=== PATIENT | female | born 1945 | race Caucasian/White ===

== ENCOUNTER → 2016-10-18 | Outpatient (REF) | payer MEDICARE, MEDICAID ==
[~2016-10-18] MED LIST: /MOXI40TA PO; ALBU0.084 IN; ALBUPOW9 XX; ASPI81TA7 PO; CALTTAB5 PO; CEFT500T PO; HYDR7.5T33 PO; IPRA2IN INH; NICO14PA EXT; PERCOCET PO; PRED10TA2 PO; SIMV20TA2 PO; SING5CHW PO; SOMA350T PO; SPIRIVA INH; SYMB80INH INH; VITAD1000T PO; XANA0.5T PO
[2016-10-18 17:00] LABS: INR 1.01
== END ==
LOC: M LABDRAW1 15:42
PROVIDERS: ATTEND Internal Medicine Pulmonary Disease
DX: R91.8 Other nonspecific abnormal finding of lung field (principal)

== ENCOUNTER → 2016-10-28 | Outpatient (CLI) | payer MEDICAID, MEDICARE ==
[~2016-10-28] MED LIST changes: +ACETAMINOPHEN TAB 650MG DOSE (2X325MG) PO PRN; +IBUPROFEN 200 MG TAB As Ordered ONE; +IBUPROFEN 600 MG TAB PO PRN; +LIDOCAINE 1% MDV 20ML VIAL As Ordered ONE
--- NOTE | 2016-10-28 09:58 | REP ---
CHEST X-RAY: PA VIEW HISTORY: Patient status post CT guided needle biopsy left upper lobe mass. Question pneumothorax. CHEST X-RAY FINDINGS: There is a mass visible in the left upper lobe. No pneumothorax is seen. The lungs are hyperinflated as before. Pleural angles are sharp. The exam is otherwise unremarkable. IMPRESSION: No complication identified. No pneumothorax seen. Evidence of COPD. Signed by Indra Victor MD 10/28/2016 02:38 P
--- NOTE | 2016-10-28 11:35 | REP ---
FOLLOW-UP CHEST X-RAY: PA view. HISTORY: Pain status post CT guided needle biopsy of the lung. FINDINGS: There is no evidence of pneumothorax. Evidence of COPD is seen. The left apical mass persists. IMPRESSION: No complication identified. Signed by Indra Victor MD 10/28/2016 02:40 P
--- NOTE | 2016-11-01 17:04 | REP ---
CT GUIDED LEFT UPPER LOBE LUNG BIOPSY: The procedure was performed under the direct supervision of Dr. Victor. The patient has a history of a 1.5 x 1.0 cm mass in the left upper lobe seen on a previous CAT scan from [facility] performed on 10/03/2016. The risks and benefits of the procedure were explained to the patient and informed consent was obtained. The left upper lobe lung mass was localized using CT guidance. The skin was prepped and draped in a sterile fashion. 1% Lidocaine was used as a local anesthetic. Using CT guidance a #19/20 coaxial needle biopsy system was inserted and advanced into the mass. 4 core biopsy samples were obtained and sent to the lab. Thee patient tolerated the procedure well and there were no immediate complications. After the appropriate amount of monitored convalescence the patient was discharged from the department. Reviewed by SAMANTHA White 11/02/2016 08:25 AEdited and Signed by Indra Victor MD 11/02/2016 09:42 A
== END | disposition home or self-care (01) ==
LOC: M RADPRO 08:25
PROVIDERS: ATTEND Internal Medicine Pulmonary Disease
DX: C34.12 Malignant neoplasm of upper lobe, left bronchus or lung (principal); J43.1 Panlobular emphysema; I10 Essential (primary) hypertension; F41.9 Anxiety disorder, unspecified; E78.00 Pure hypercholesterolemia, unspecified; G89.4 Chronic pain syndrome; M54.9 Dorsalgia, unspecified; J96.11 Chronic respiratory failure with hypoxia; Z87.891 Personal history of nicotine dependence; Z79.82 Long term (current) use of aspirin; Z79.899 Other long term (current) drug therapy; Z79.51 Long term (current) use of inhaled steroids; Z88.1 Allergy status to other antibiotic agents

== ENCOUNTER → 2016-11-16 | Outpatient (CLI) | payer MEDICARE ==
[~2016-11-16] MED LIST changes: -ACETAMINOPHEN TAB 650MG DOSE (2X325MG) PO PRN; -IBUPROFEN 200 MG TAB As Ordered ONE; -IBUPROFEN 600 MG TAB PO PRN; -LIDOCAINE 1% MDV 20ML VIAL As Ordered ONE
--- NOTE | 2016-11-16 15:20 | REP ---
Whole body PET / CT scan: Studies performed for evaluation of left upper lobe nodule additionally identified on chest CT dated 09/13/2016 ([facility]). Whole body PET / CT scan is performed from the skull base to the upper thighs. Neck and supraclavicular areas: There are no hypermetabolic foci. Chest: The left upper lobe nodule demonstrates hypermetabolic uptake with a standard uptake value of 4.7. There is a hypermetabolic focus in the left axilla having a standard uptake value of 4.9, likely in an axillary node. The area measures 6 mm in diameter. Somewhat more distally in the left upper extremity, there is vascular artifact uptake. There is hypermetabolic uptake in an enlarged left hilar node, the standard uptake value measuring 5.1, and the node measuring 1.7 cm short axis. There are no other hypermetabolic foci in the chest. Abdomen, pelvis and upper thighs: There are no hypermetabolic foci. Impression: The patient's known left upper lobe lung nodule demonstrates hypermetabolic uptake. Additionally, there is hypermetabolic uptake in an enlarged left hilar node. There is uptake in the left axilla likely within an axillary node, and also vascular artifact in the left upper extremity. There are no other hypermetabolic foci. The study is performed with 8.7 mCi of F 18 FDG. Signed by Jesus Almaguer MD 11/16/2016 03:12 P
== END ==
LOC: M RAD 11:22
PROVIDERS: ATTEND Internal Medicine Pulmonary Disease
DX: C34.12 Malignant neoplasm of upper lobe, left bronchus or lung (principal)
CPT/HCPCS: 78815; A9552

== ENCOUNTER → 2016-11-22 | Outpatient (REF) | payer MEDICARE | LOC: M LAB REF 09:00 | PROVIDERS: ATTEND Internal Medicine Medical Oncology | DX: C34.92 Malignant neoplasm of unspecified part of left bronchus or lung (principal) ==

== ENCOUNTER → 2016-12-15 | Outpatient (CLI) | payer MEDICARE ==
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
== END ==
LOC: M ONCR 13:12
PROVIDERS: ATTEND Radiology Radiation Oncology
DX: C34.90 Malignant neoplasm of unspecified part of unspecified bronchus or lung (principal)

== ENCOUNTER → 2016-12-22 | Outpatient (CLI) | payer MEDICARE ==
--- NOTE | 2016-12-28 07:46 | RADONC ---
RADIATION ONCOLOGY FOLLOWUP NOTE DATE: 12/22/2016 CHART NUMBER: [id number]. FOLLOWUP NOTE: Ms. 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 Since that time, she has been presented at our multidisciplinary tumor conference. Her FEV-1 is 0.6 or 26% of predicted and her diffusion capacity is only 27% of predicted. In light of the bedolla involved and the amount of normal lung she would lose with treatment,. she was not deemed to be a surgical candidate nor a candidate for external beam radiation. The patient is being followed by her medical oncologist, Dr. Almaraz. I await his expert recommendations. I made clear to the patient and family that just because at this time we cannot safely treat this much lung that does not mean she would not be candidate for radiation in the future. Radiation for palliation would be a possibility for such issues as bone metastasis or brain metastasis. Indeed, normally, we could treat most parts of her body for quality of life issues. At this point, however, I do not think we would be of any benefit to her. Indeed, we may significantly harm her quality of life and the chances of achieving anything of any significance would be minimal. Therefore, discharging her from our followup at this point. Should Dr. Almaraz see any future benefits for radiation, I would be more than glad to readdress the issue with the patient and see her at anytime. Thank you once again for allowing us to participate in the care of this very pleasant and unfortunate woman. cc: MD Damien Biggs DO [facility] *Sina Gregg MD
== END ==
LOC: M ONCR 13:05
PROVIDERS: ATTEND Radiology Radiation Oncology
DX: C34.90 Malignant neoplasm of unspecified part of unspecified bronchus or lung (principal)

== ENCOUNTER → 2017-04-24 | Outpatient (CLI) | payer MEDICARE, MEDICAID ==
[~2017-04-24] MED LIST changes: +ASCO25TA PO; +GUAISYP4 PO; +MULT1TAB18 PO; +TUSS1CAP5 PO; +TUSSSUS6 PO
--- NOTE | 2017-04-24 12:16 | REP ---
CT of the chest without IV contrast: Comparisons are 09/23/2016 ([facility]) and 10/03/2016 ([facility]). The the patient also had a radionuclide CT scan 11/16/2016. And a CT guided needle biopsy on 10/28/2016. The patients known spiculated left upper lobe nodule is again identified today measuring 12 x 8 mm (previously 15 x 10 mm.). Ground-glass density at the inferior tip of the lingula is again identified, unchanged. There is also unchanged from a prior study of 01/29/2014. No other lung masses or nodules are identified. There are no acute infiltrates or effusions. There is bullous replacement of the lung bedolla bilaterally compatible with bullous emphysema. This is unchanged. No mediastinal adenopathy is identified. The study is insensitive for hilar adenopathy in the absence of IV contrast. The thoracic aorta is unremarkable except for occasional calcified atheroma. Cardiac size is normal. There are atheromatous calcifications in the coronary arteries. The upper abdomen there is no adrenal mass. The visualized hepatic parenchyma, gallbladder, pancreas and spleen are unremarkable. The patients known spiculated nodule in the left upper lobe has slightly decreased size. There is extensive bullous replacement of the lung parenchyma bilaterally, unchanged. The ground-glass density at the inferior tip of the lingula is again identified, unchanged. It is also unchanged from a prior study of 01/29/2014. There are no new or acute cardiopulmonary findings. Signed by Jesus Almaguer MD 04/24/2017 12:08 P
== END ==
LOC: M RAD 11:20
PROVIDERS: ATTEND Internal Medicine Pulmonary Disease
DX: C34.12 Malignant neoplasm of upper lobe, left bronchus or lung (principal)

== ENCOUNTER 2017-04-25 14:11 | Emergency (ER) | payer MEDICARE, MEDICAID ==
[~2017-04-25] VITALS: Ht 165.1 cm; Wt 50.0 kg
[~2017-04-25 14:11] MED LIST changes: -ASCO25TA PO; -GUAISYP4 PO; -MULT1TAB18 PO; -TUSS1CAP5 PO; -TUSSSUS6 PO
[2017-04-25] MEDS ORDERED: MULT1TAB18 PO (14:40)
[2017-04-25] MEDS ORDERED: ASCO25TA PO (14:40)
[2017-04-25 15:41] LABS: BASO % 0.8 % (0.0-1.0); EOS % 0.3 % (0.0-3.0); LARGE UNSTAINED CELL # 0.1 K/mm3 (0.0-0.4); LARGE UNSTAINED CELL % 2.3 % (0.0-4.0); LYMPH # 1.4 K/mm3 (1.5-4.5); LYMPH % 29.3 % (24.0-44.0); MEAN CORPUSCULAR HEMOGLOBIN 28.5 pg (27.0-33.0); MONO # 0.3 K/mm3 (0.0-0.8); MONO % 7.6 % (0.0-5.0); NEUTROPHILS # 2.7 K/mm3 (1.8-7.7); NEUTROPHILS % 59.8 % (36.0-66.0); PLATELET COUNT, AUTOMATED 220 k/mm3 (150-450); RED CELL DISTRIBUTION WIDTH 13.9 % (11.5-14.5); WHITE BLOOD COUNT 4.5 K/mm3 (4.0-10.0)
[2017-04-25 15:46] LABS: ABG BASE EXCESS 1.8 (-2.0-2.0); ABG HCO3 27.3 MEQ/L (22.0-26.0); ABG PARTIAL PRESSURE CO2 46.6 mmHg (35.0-45.0); ABG PARTIAL PRESSURE O2 67.1 mmHg (75.0-100.0); ABG TOTAL CO2 28.8 MEQ/L (23.0-31.0); ABG pH (ARTERIAL) 7.386 UNITS (7.350-7.450)
[2017-04-25 15:50] LABS: ANION GAP 10 MEQ/L (8-16); BLOOD UREA NITROGEN 18 MG/DL (7-18); CALCIUM LEVEL 8.9 MG/DL (8.8-10.2); CARBON DIOXIDE LEVEL 28 MEQ/L (21-32); CHLORIDE LEVEL 95 MEQ/L (98-107); CREATININE FOR GFR 0.86 MG/DL (0.55-1.02); GLOMERULAR FILTRATION RATE > 60.0 (>39); GLUCOSE, FASTING 110 MG/DL (83-110); SODIUM LEVEL 133 MEQ/L (136-145)
[2017-04-25] MEDS ORDERED: NS 1,000 ML IV ONE (16:30)
[2017-04-25 16:36] LABS: ALBUMIN 4.1 GM/DL (3.2-5.2); ALBUMIN/GLOBULIN RATIO 1.24 (1.00-1.93); ALKALINE PHOSPHATASE 65 U/L (45-117); ALT/SGPT 25 U/L (12-78); AST/SGOT 41 U/L (15-37); BILIRUBIN,DIRECT 0.1 MG/DL (0.0-0.2); BILIRUBIN,TOTAL 0.3 MG/DL (0.2-1.0); TOTAL PROTEIN 7.4 GM/DL (6.4-8.2)
--- NOTE | 2017-04-25 17:00 | REP ---
Chest x-ray: Two views: History: Dyspnea and cough. Comparison chest x-ray 10/28/2016. Findings: The lungs are hyperinflated. This is consistent with COPD. No focal infiltrate is seen. There are nipple silhouettes project at the bases. There is an ill-defined 1.4 cm soft tissue nodule projecting in the left superior perihilar region. This was observed on the previous study. There is emphysematous change. Heart is not enlarged. The diaphragms are inverted. There are mild degenerative changes in the thoracic spine. Impression: 1. Evidence of advanced COPD. 2. 1.4 cm nodule in the left upper lobe region again noted. 3. Otherwise no acute disease. Signed by Indra Victor MD 04/25/2017 06:44 P
[2017-04-25] MEDS ORDERED: TUSS1CAP5 PO (19:03)
[2017-04-25 19:12] VITALS: BP 176/94
[2017-04-25] MEDS ORDERED: TUSSSUS6 PO (19:12)
[2017-04-25] MEDS ORDERED: GUAISYP4 PO (19:16)
--- NOTE | 2017-04-26 08:27 | ECGEPIP ---
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
--- NOTE | 2017-04-26 10:16 | ED PDOC ---
Post-Departure Follow-Up radiology report faxed to Joan Yee MD Apr 26, 2017 10:16
== END 2017-04-25 20:12 | disposition home or self-care (01) ==
LOC: M ED 14:11 → EDBD 14:11 → M ED 20:12
DX: J44.1 Chronic obstructive pulmonary disease with (acute) exacerbation (principal); I25.2 Old myocardial infarction; G43.909 Migraine, unspecified, not intractable, without status migrainosus; G89.29 Other chronic pain; M54.9 Dorsalgia, unspecified; H35.30 Unspecified macular degeneration; F41.9 Anxiety disorder, unspecified; Z85.118 Personal history of other malignant neoplasm of bronchus and lung; Z79.891 Long term (current) use of opiate analgesic; Z88.1 Allergy status to other antibiotic agents; Z88.8 Allergy status to other drugs, medicaments and biological substances; Z79.82 Long term (current) use of aspirin; Z79.899 Other long term (current) drug therapy